=== PATIENT | male | born 1965 | race Caucasian/White ===

== ENCOUNTER 2017-10-15 08:36 | Day surgery (SDC) ==
[2015-02-13 09:17] VITALS: BMI 29.6
[2017-10-15] MEDS ORDERED: LIDOCAINE 1% 20 ML MDV ID STA (09:14)
[2017-10-15] MEDS ORDERED: DIPRIVAN 20 ML VIAL IVP ONE (10:50)
[2017-10-15] MEDS ORDERED: VERSED ONE (10:50)
[2017-10-15 13:46] VITALS: BP 118/67; TEMP 98.6
--- NOTE | 2017-10-16 11:44 | OP ---
INDICATIONS FOR PROCEDURE: 52-year-old gentleman presents for a screening colonoscopy. MEDICATIONS: SEE ANESTHESIA NOTES. PROCEDURE: COLONOSCOPY. REPORT: The risks, benefits, alternatives and limitations were discussed in detail with the patient. Informed consent was obtained. After adequate sedation was achieved, a digital rectal exam revealed good tone, no masses. The colonoscope was introduced into the rectum and advanced under direct visual guidance easily to the cecum. The cecum was identified by the appendiceal orifice and IC valve. I then slowly withdrew the scope in a circumferential manner examining the mucosa quite carefully. I looked on the proximal and distal side of folds and flexures as best as possible. I was able to retroflex the scope in the right colon as well as left colon to increase visualization. The colonic mucosa unremarkable in its entire length. On retroflex view of the anal canal, I saw three small anal skin tags. The patient tolerated the procedure well with stable vital signs and pulse oximetry throughout. His prep was good. The withdrawal time was 6 minutes and 23 seconds. IMPRESSION: 1. THREE (3) SMALL ANAL SKIN TAGS 2. OTHERWISE NORMAL COLONOSCOPY EXAM RECOMMENDATIONS: 1. High fiber diet. 2. Office visit as needed. 3. Screening colonoscopy examination again in 10 years, sooner if there are any signs or symptoms to indicate otherwise. CC: DR. BETHANY GOLDMAN
== END 2017-10-15 11:45 | disposition home or self-care (01) ==
LOC: SURG 08:36
PROVIDERS: ATTEND Internal Medicine Gastroenterology
DX: Z12.11 Encounter for screening for malignant neoplasm of colon (principal); K64.4 Residual hemorrhoidal skin tags
CPT/HCPCS: 00812; G0121

== ENCOUNTER 2018-02-10 21:55 | Emergency (ER) ==
[2018-02-10 22:06] VITALS: BP 145/81; TEMP 98.1; BMI 28.3
[2018-02-10] MEDS ORDERED: LIDOCAINE HCL 1% SDV SUBCUT STA (22:06)
--- NOTE | 2018-02-10 22:29 | ED.PDOC ---
General ED Provider: Dr. GORDO MEAD-ER Chief Complaint: Finger Laceration Stated Complaint: i cut my finger Time Seen by Physician: 21:55 Mode of Arrival: Walk-In Information Source: Patient Exam Limitations: No limitations Nursing and Triage Documentation Reviewed and Agree: Yes Does patient meet sepsis criteria?: No System Inflammatory Response Syndrome: Not Applicable Sepsis Protocol: For patient's 13 years and over: Temp is 96.8 and below OR 101 and greater Pulse >90 BPM Resp >20/minute Acutely Altered Mental Status Are patient's symptoms suggestive of a new infection, such as: -Pneumonia -Skin, Soft Tissue -Endocarditis -UTI -Bone, Joint Infection -Implantable Device -Acute Abdominal Infection -Wound Infection -Meningitis -Blood Stream Catheter Infection -Unknown Skin Complaint Exam - Laceration/Abrasion/Hand Complaint/Exam Location of Injury: Right, Digit #1 Mechanism of Injury: Laceration Onset/Duration: one h9our Symptoms Are: Still present Initial Severity: Mild Current Severity: Mild Aggravating: Movement Alleviating: Compression Associated Signs and Symptoms: Denies: Fever, Chills, Erythema, Numbness, Tingling Related History: Reports: Right hand dominant Differential Diagnoses: Laceration Review of Systems - Review Of Systems Constitutional: Reports: No symptoms Eyes: Reports: No symptoms Ears, Nose, Mouth, Throat: Reports: No symptoms Respiratory: Reports: No symptoms Cardiac: Reports: No symptoms GI: Reports: No symptoms : Reports: No symptoms Musculoskeletal: Reports: No symptoms Skin: Reports: No symptoms Neurological: Reports: No symptoms Endocrine: Reports: No symptoms Hematologic/Lymphatic: Reports: No symptoms All Other Systems: Reviewed and Negative Past Medical History - Past Medical History Previously Healthy: Yes Endocrine: Reports: Dyslipidemia Cardiovascular: Reports: None Respiratory: Reports: None Hematological: Reports: None Gastrointestinal: Reports: GERD Genitourinary: Reports: None Neuro/Psych: Reports: Depression Musculoskeletal: Reports: Unknown Cancer: Reports: None - Surgical History General Surgical History: Reports: Appendectomy - Family History Family History: Reports: Unknown - Social History Smoking Status: Never smoker Hx Substance Use: No Alcohol Screening: Occasionally - Immunizations Tetanus Shot up to Date: Yes (02/13/15) Physical Exam - Physical Exam Appearance: Well-appearing, No pain distress, Well-nourished Eyes: SARA, EOMI, Conjunctiva clear ENT: Ears normal Neck: Supple Respiratory: Airway patent, Breath sounds clear, Breath sounds equal, Respirations nonlabored Cardiovascular: RRR, Pulses normal, No rub, No murmur GI/: Soft, Nontender, No masses, Bowel sounds normal, No Organomegaly Musculoskeletal: Normal strength, ROM intact, No edema, No calf tenderness Skin: Warm, Dry, Normal color Neurological: Sensation intact, Motor intact, Reflexes intact, Cranial nerves intact, Alert, Oriented Psychiatric: Affect appropriate, Mood appropriate Procedures - Laceration/Wound Repair No standard instances Wound Description: Irregular Wound Length (cm): 2.5cm Wound Explored: Clean Wound Irrigated: Yes Anesthesia: Lidocaine Wound Repaired With: Sutures Suture Size and Type: 4.0 prolene Number of Sutures: 3 Layer Closure?: No Sterile Dressing Applied?: Yes Splint Applied?: No Sling Applied?: No Critical Care Note - Critical Care Note Total Time (mins): 0 Course - Course Orders, Labs, Meds: Orders Category Date Time Status Lidocaine HCl/Pf [Lidocaine HCl 1% Sdv] MEDS 02/10/18 22:06 Discontinued 5 ml SUBCUT ONCE STA Medications Discontinued Medications Generic Name Dose Route Start Last Admin Trade Name Freq PRN Reason Stop Dose Admin Lidocaine HCl 5 ml 02/10/18 22:06 Lidocaine Hcl 1% Sdv SUBCUT 02/10/18 22:07 ONCE STA Vital Signs: Temp Pulse Resp BP Pulse Ox 02/10/18 21:56 98.1 F 74 18 145/81 H 96 Departure - Departure Time of Disposition: 22:28 Disposition: HOME SELF-CARE Discharge Problem: Laceration of finger Instructions: Laceration (ED), Care For Your Stitches (ED) Condition: Good Pt referred to PMD for follow-up: No IPMP verified?: No Additional Instructions: routine suture care--sutures out in 7 days--return if any signs of infection Allergies/Adverse Reactions: Allergies atorvastatin calcium [From Lipitor] Adverse Reaction (Verified 02/10/18 22:04) JOINT/BODY ACHES Home Medications: Ambulatory Orders Levocetirizine Dihydrochloride [Xyzal] 5 mg PO DAILY PRN 02/13/15 Rosuvastatin Calcium [Crestor] 20 mg PO DAILY 02/13/15 Aspirin [Low Dose Aspirin EC] 1 tab PO DAILY 10/14/17 Disposition Discussed With: Patient
== END 2018-02-10 22:45 | disposition home or self-care (01) ==
LOC: ED 21:55
DX: S61.210A Laceration without foreign body of right index finger without damage to nail, initial encounter (principal); W26.9XXA Contact with unspecified sharp object(s), initial encounter
CPT/HCPCS: 99283